=== PATIENT | male | born 1980 | race African-American/Black ===

== ENCOUNTER → 2017-04-15 | Outpatient (CLI) | payer OTHER ==
[~2017-04-15] MED LIST: ALEVE220 M1 PO; TENORMIN25 MG PO
--- NOTE | ~2017-04-15 | EKG ---
PATIENT: KIMMIE MURCIA UNIT #: [id number] Ventricular Rate: 91 BPM Atrial Rate: 91 BPM P-R Interval: 106 ms QRS Duration: 76 ms Q-T Interval: 346 ms QTC Calculation(Bezet): 425 ms P [place]: 42 degrees Calculated R [place]: 65 degrees Calculated T [place]: 42 degrees Diagnosis Line: Sinus rhythm with short [place] Diagnosis Line: Voltage criteria for left ventricular hypertrophy Diagnosis Line: Abnormal ECG Diagnosis Line: No previous ECGs available Diagnosis Line: Confirmed by SHIVANI GIBSON MD ([id number]) on 04/16/2017 Diagnosis Line: 11:44:15 PM INTERPRETING MD: PAIGE GALLEGOS
[2017-04-15 16:14] LABS: ALBUMIN SERUM 5.1 g/dL (3.5-5.0); BUN/CREATININE RATIO 11.53; CALCIUM SERUM 8.9 mg/dL (8.4-10.2); CREATININE SERUM 1.3 mg/dL (0.6-1.4); GLOM FILT RATE Estimated 80.8 mL/min (>60); POTASSIUM 4.1 mmol/L (3.5-5.1); PROTEIN TOTAL SERUM 8.3 g/dL (6.0-8.3)
== END | disposition home or self-care (01) ==
LOC: EDBD 13:43 → CAMB 13:43
PROVIDERS: Surgery
DX: Z01.818 Encounter for other preprocedural examination (principal); K40.90 Unilateral inguinal hernia, without obstruction or gangrene, not specified as recurrent
CPT/HCPCS: 36415; 80053; 93005

== ENCOUNTER 2017-04-22 22:22 | Emergency (ER) | payer OTHER ==
[~2017-04-22] VITALS: Ht 177.8 cm; Wt 74.8 kg
--- NOTE | ~2017-04-22 | OR ---
Unit #: [id number] #: [id number] Patient: KIMMIE MURCIA [id number] [facility]. [place], [place] [address] [id number] MR#: [id number] NAME: KIMMIE MURCIA ROOM: Date of Procedure: 04/22/2017 Admission Date: 04/22/2017 Surgeon: Anjum Enrique M.D. : 1980 Attending Physician: Rusty Mcfarlane M.D. Primary Care Physician: Chely Moore Aprn OPERATIVE REPORT PREOPERATIVE DIAGNOSIS Left inguinal hernia. POSTOPERATIVE DIAGNOSIS Incarcerated left inguinal hernia with strangulated omentum. PROCEDURES PERFORMED 1. Diagnostic laparoscopy. 2. Open left inguinal hernia repair with plug and patch technique. 3. Partial omentectomy. MUCK OPERATOR None. ANESTHESIA General anesthesia. ESTIMATED BLOOD LOSS 50 mL. IV FLUIDS 800 crystalloid. COMPLICATIONS None. INDICATIONS FOR PROCEDURE The patient is a 36-year-old with a complex inguinal hernia. He presents for attempted laparoscopic repair. DESCRIPTION OF PROCEDURE The patient was taken to the operating theater and placed in supine position. General anesthesia was induced. The abdomen was prepped and draped. Infraumbilical incision was then made. A small Veress needle was placed intra-abdominally. The abdomen was insufflated to 15 mmHg with CO2. I placed a 5-mm port. The patient was placed in Trendelenburg. I identified left-sided incarcerated indirect inguinal hernia with colon and omentum. I placed another 5 mm port. I attempted to reduce this with traction and external pressure, but was unable. Thus, I aborted the laparoscopic portion of the procedure. I then made a left lower quadrant incision. This was taken down to the Unit #: [id number] #: [id number] Patient: KIMMIE MURCIA external oblique aponeurosis with Bovie electrocautery. I then opened the external oblique aponeurosis fibers to expose the cord. The cord was skeletonized. I was able to reduce the hernia. I identified the ilioinguinal nerve. This was kept free of our dissection. I the cord from the testicular vessels. I then opened the sac and identified what appeared to be a sliding-type hernia with colon. There was also an area of ischemic omentum, but it twisted in the distal sac. This was excised. I then reclosed the sac to close the peritoneum. I then inverted the sac reducing the hernia. I repaired in a plug and patch technique placing the plug into the indirect space. This was secured to the surrounding tissue as well as the shelving edge of the inguinal ligament with 0 Vicryl suture. I then placed a patch and secured this to the pubic tubercle, the conjoined tendon, as well as the shelving edge of the inguinal ligament. I then recreated the internal ring. Hemostasis was adequate. I closed the external oblique aponeurosis with 0 Vicryl. The Terrie fascia was closed with 2-0 Vicryl, and skin with trevin. The patient tolerated the procedure well and sent to recovery room in good condition. Dictated by... Sandi Madsen/yoseph TD: 04/22/2017 16:04 JOB #: [id number] OPERATIVE REPORT Page 1 of 1 X Anjum Enrique MD PROCEDURE OPERATIVE NOTE
== END 2017-04-23 01:36 | disposition home or self-care (01) ==
LOC: CED 22:22
DX: R33.9 Retention of urine, unspecified (principal); F17.200 Nicotine dependence, unspecified, uncomplicated; Z79.899 Other long term (current) drug therapy
CPT/HCPCS: 99283

== ENCOUNTER → 2017-04-22 | Day surgery (SDC) | payer OTHER ==
[2017-04-22 09:06] LABS: BUN/CREATININE RATIO 13.33; CALCIUM SERUM 8.8 mg/dL (8.4-10.2); CREATININE SERUM 0.9 mg/dL (0.6-1.4)
== END | disposition home or self-care (01) ==
LOC: CSUR 08:04 → EDBD 10:00
PROVIDERS: Surgery
DX: K40.30 Unilateral inguinal hernia, with obstruction, without gangrene, not specified as recurrent (principal); I10 Essential (primary) hypertension; F17.210 Nicotine dependence, cigarettes, uncomplicated; Z53.31 Laparoscopic surgical procedure converted to open procedure; Z79.1 Long term (current) use of non-steroidal anti-inflammatories (NSAID); Z79.899 Other long term (current) drug therapy; Z98.890 Other specified postprocedural states
CPT/HCPCS: 80048; 88305; 88312; J0330; J0690; J1170; J1644; J1885; J2250; J2405; J2710; J3010; J3490